=== PATIENT | female | born 1965 | race African-American/Black ===

== ENCOUNTER → 2017-02-06 | Outpatient (CLI) | payer OTHER ==
[2015-10-04 12:11] VITALS: BP 117/70
--- NOTE | 2017-02-07 08:25 | MRI ---
MRI right shoulder without contrast Indication: Shoulder pain Technique: Multi sequence, multiplanar MR images of the right shoulder were obtained without contras t Comparison: None Findings: No acute fracture, subluxation or aggressive osseous lesion is identified. There is mild tendinosis of the supraspinatus tendon without discrete tear identified. The infraspin atus, teres minor and subscapularis tendons appear normal. No atrophy or edema of the rotator cuff m usculature is seen. There is moderate degenerative arthrosis of the AC joint with mild reactive subchondral edema within the distal clavicle. There is also mild AC joint capsular hypertrophy and inferiorly oriented clavi cular osteophytes, which encroach upon the supraspinatus. The type 1 acromion shows no significant a nterior or lateral downsloping. The glenohumeral joint appears well maintained. There is no signific ant effusion or fluid within the subdeltoid/subacromial bursa. The long head biceps tendon is intact and appropriately positioned within the bicipital groove. No f ocal labral defects are identified. Impression: 1. 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 2. Mild supraspinatus tendinosis. No cuff tear identified. Reported By:
== END ==
LOC: RAD 08:47
PROVIDERS: ATTEND Specialist
DX: M19.011 Primary osteoarthritis, right shoulder (principal)
CPT/HCPCS: 73221

== ENCOUNTER → 2017-03-04 | Outpatient (CLI) | payer OTHER ==
[2015-10-04 12:11] VITALS: BP 117/70
[2017-03-04 13:50] LABS: BASOPHILS # (AUTO) 0.1 X10^3/uL (0.0-0.1); EOSINOPHILS # (AUTO) 0.1 x10^3/uL (0.0-0.2); EOSINOPHILS % (AUTO) 1.6 % (0.9-2.9); HEMATOCRIT 38.9 % (36.0-47.0); HEMOGLOBIN 12.6 g/dL (12.0-16.0); LYMPHOCYTES # (AUTO) 2.3 X10^3/uL (1.3-2.9); LYMPHOCYTES % (AUTO) 25.5 % (21.0-51.0); MEAN CORPUSCULAR HEMOGLOBIN 26.4 pg (27.0-34.0); MEAN CORPUSCULAR HGB CONC 32.4 g/dL (33.0-35.0); MEAN CORPUSCULAR VOLUME 81.5 fL (80.0-100.0); MEAN PLATELET VOLUME 9.4 fL (7.4-11.0); MONOCYTES # (AUTO) 0.6 x10^3/uL (0.3-0.8); MONOCYTES % (AUTO) 6.5 % (0.0-13.0); NEUTROPHILS # (AUTO) 5.8 x10^3/uL (2.2-4.8); NEUTROPHILS % (AUTO) 65.4 % (42.0-75.0); PLATELET COUNT 231 X10^3/uL (150.0-450.0); RED BLOOD COUNT 4.78 X10^6/uL (3.5-5.4); RED CELL DISTRIBUTION WIDTH 14.9 % (11.6-16.5); WHITE BLOOD COUNT 8.9 X10^3/uL (3.6-10.0)
[2017-03-04 13:55] LABS: BILIRUBIN,URINE NEGATIVE (NEGATIVE); BLOOD/HEMOGLOBIN,URINE 4+ (NEGATIVE); GLUCOSE, URINE 4+ (NEGATIVE); KETONES,URINE NEGATIVE (NEGATIVE); LEUKOCYTE ESTERASE ,URINE 2+ (NEGATIVE); NITRITES,URINE NEGATIVE (NEGATIVE); PROTEIN,URINE 1+ (NEGATIVE); UROBILINOGEN,URINE NORMAL (NORMAL)
[2017-03-04 14:04] LABS: ALANINE AMINOTRANSFERASE 27 Units/L (12-78); ALBUMIN 3.4 g/dL (3.4-5.0); ALKALINE PHOSPHATASE 101 Units/L (46-116); ASPARTATE AMINO TRANSFERASE 18 Units/L (15-37); BLOOD UREA NITROGEN 13 mg/dL (7-18); CALCIUM 8.2 mg/dL (8.5-10.1); CARBON DIOXIDE 29.6 mmol/L (21-32); CHLORIDE 103 mmol/L (98-107); COR NA(FOR HYPERGLY) 145 mmol/L (136-145); CREATININE 1.66 mg/dL (0.55-1.02); GLUCOSE 340 mg/dL (65-99); SODIUM 139 mmol/L (136-145); TOTAL PROTEIN 7.1 g/dL (6.4-8.2); eGFR BLACK RACES 41 (>60); eGFR NON BLACK RACES 34 (>60)
[2017-03-04 14:11] LABS: APPEARANCE,URINE SLIGHTLY HAZY (CLEAR); BACTERIA,URINE TRACE /HPF (NEGATIVE); COLOR,URINE YELLOW (YELLOW); RBC,URINE 40-50 /HPF (NEGATIVE); SQUAMOUS EPITHELIAL CELL,UR FEW /HPF (NEGATIVE)
--- NOTE | 2017-03-04 14:18 | RAD ---
Examination: Chest x-ray. Clinical History: Preop right shoulder surgery. Technique: PA and lateral views of the chest were obtained. Comparison: 10/02/2015. Findings: The cardiac silhouette is borderline enlarged. There is stable mild elevation of the right hemidiaphragm. No pneumothorax or pleural effusion is no sh[place]. The lungs appear clear. Mild degenerative changes are noted in the spine. No acute osseous abnormality is noted. Impression: 1. Borderline enlarged cardiac silhouette. Reported By:
[2017-03-04 14:26] LABS: ERYTHROCYTE SEDIMENTATION RATE 18 MM/HOUR (0-20)
== END ==
LOC: LAB 13:24
PROVIDERS: ATTEND Orthopaedic Surgery
DX: Z01.818 Encounter for other preprocedural examination (principal); Z01.810 Encounter for preprocedural cardiovascular examination; Z01.811 Encounter for preprocedural respiratory examination; Z79.899 Other long term (current) drug therapy; Z11.8 Encounter for screening for other infectious and parasitic diseases; M19.011 Primary osteoarthritis, right shoulder
CPT/HCPCS: 36415; 71020; 80053; 81001; 85025; 85652; 86140; 87641; 93005; 93010

== ENCOUNTER 2017-03-06 07:37 | Day surgery (SDC) | payer OTHER ==
[~2017-03-06 07:37] MED LIST: ANCEF VIAL 1 GM ONE; D5 LR 1000 ML 1,000 ML IV ONE; NS 50 ML IV + SPIKE MINIBAG* 50 ML IV ONE
[2017-03-06] MEDS ORDERED: KENALOG INJ 40 MG ONE (08:05)
[2017-03-06] MEDS ORDERED: NS 1000 ML 1,000 ML ONE (08:15)
[2017-03-06] MEDS ORDERED: FENTANYL INJ 250 mcg ONE (08:42)
[2017-03-06] MEDS ORDERED: NS IRRIGATION IR ONE ×2 (08:52)
[2017-03-06] MEDS ORDERED: ADRENALINE CHL IR ONE ×2 (08:52)
[2017-03-06] MEDS ORDERED: VENTOLIN or PROAIR HFA ONE (09:37)
[2017-03-06] MEDS ORDERED: DIPRIVAN VIAL ONE (09:38)
[2017-03-06] MEDS ORDERED: ZOFRAN INJ 4 MG VIAL ONE (09:38)
[2017-03-06] MEDS ORDERED: NORCURON INJ 10 MG VIAL ONE (09:38)
[2017-03-06] MEDS ORDERED: ROBINUL ONE (09:38)
[2017-03-06] MEDS ORDERED: NEOSTIGMINE INJ ONE (09:38)
[2017-03-06] MEDS ORDERED: SUPRANE IN ONE (09:38)
[2017-03-06] MEDS ORDERED: VERSED ONE (09:38)
[2017-03-06] MEDS ORDERED: XYLOCAINE 2 % (PLAIN) ONE (09:38)
[2017-03-06] MEDS ORDERED: QUELICIN (OR ANECTINE) ONE (09:38)
[2017-03-06] MEDS ORDERED: NORCO 5/325 MG TAB PO PRN (11:20)
[2017-03-06] MEDS ORDERED: REGLAN INJ 10 MG VIAL IVP PRN (11:34)
[2017-03-06] MEDS ORDERED: PHENERGAN INJ 25 MG IVP PRN (11:34)
[2017-03-06] MEDS ORDERED: BENADRYL INJ 50 MG VIAL IVP PRN (11:34)
[2017-03-06] MEDS ORDERED: ZOFRAN INJ 4 MG VIAL IVP PRN (11:34)
[2017-03-06] MEDS ORDERED: NORMODYNE INJ 20 MG VIAL ONE (11:36)
[2017-03-06] MEDS: DILAUDID INJ IVP PRN ×2 (11:55→12:00)
[2017-03-06 13:48] VITALS: BP 172/80
== END 2017-03-06 13:20 | disposition home or self-care (01) | DRG 512 ==
LOC: SURG1 07:37
PROVIDERS: ATTEND Orthopaedic Surgery
PROC: 0PB94ZZ Excision of Right Clavicle, Percutaneous Endoscopic Approach (ICD-10-PCS; 2017-03-06)
PROC: 0RNJ4ZZ Release Right Shoulder Joint, Percutaneous Endoscopic Approach (ICD-10-PCS; principal; 2017-03-06 08:30)
DX: M19.011 Primary osteoarthritis, right shoulder (principal); M75.51 Bursitis of right shoulder; M75.41 Impingement syndrome of right shoulder
CPT/HCPCS: A4216; A4222; J0170; J0330; J0690; J1170; J2001; J2250; J2405; J2710; J3010; J3301; J3490; J7120